=== PATIENT | female | born 1980 | race Caucasian/White ===

== ENCOUNTER 2021-05-24 13:41 | Emergency (ER) | payer MEDICAID ==
[~2021-05-24] VITALS: Ht 162 cm; Wt 125.0 kg
[2021-05-24] MEDS ORDERED: NS IV 1000 ML 1,000 ML IV SCH (14:15)
[2021-05-24] MEDS ORDERED: KETOROLAC 30 MG/ML VIAL IVP ONE (14:15)
[2021-05-24 14:26] LABS: HEMATOCRIT 40 % (35-52); HEMOGLOBIN 13.2 g/dL (11.5-16.0); LYMPHOCYTES % (AUTO) 26 % (12-44); MEAN CORPUSCULAR HEMOGLOBIN 31 pg (25-34); MEAN CORPUSCULAR HGB CONC 33 g/dL (32-36); MEAN CORPUSCULAR VOLUME 95 fL (80-99); MEAN PLATELET VOLUME 11.3 fL (9.0-12.2); NEUTROPHILS % (AUTO) 65 % (42-75); PLATELET COUNT 311 10^3/uL (130-400); WHITE BLOOD COUNT 11.1 10^3/uL (4.3-11.0)
[2021-05-24 14:27] LABS: BASOPHILS % (AUTO) 0 % (0-10); EOSINOPHILS # (AUTO) 0.4 10^3/uL (0.0-0.3); EOSINOPHILS % (AUTO) 3 % (0-10); LYMPHOCYTES # (AUTO) 2.9 X 10^3 (1.0-4.0); MONOCYTES # (AUTO) 0.6 X 10^3 (0.0-1.0); MONOCYTES % (AUTO) 5 % (0-12); NEUTROPHILS # (AUTO) 7.2 X 10^3 (1.8-7.8)
[2021-05-24] MEDS ORDERED: HOLD METFORMIN - RECEIVED CONTRAST 20 ML VIAL IV SCH (14:30)
[2021-05-24] MEDS ORDERED: NS 100 ML (IVPB) BAG IV ONE (14:30)
[2021-05-24] MEDS ORDERED: IOHEXOL 350 MG/ML 150 ML (OMNIPAQUE 350) VIAL IV ONE (14:30)
[2021-05-24] MEDS ORDERED: CATHETER FLUSH 10 ML SYR IV PRN (14:30)
[2021-05-24 14:36] LABS: CLARITY,URINE CLOUDY; COLOR,URINE YELLOW; GLUCOSE, URINE (UA) NEGATIVE (NEGATIVE); KETONES,URINE NEGATIVE (NEGATIVE); NITRITE,URINE NEGATIVE (NEGATIVE); PROTEIN,URINE TRACE (NEGATIVE)
[2021-05-24 14:37] LABS: BACTERIA,URINE MODERATE /HPF; BILIRUBIN,URINE 1+ (NEGATIVE); LEUKOCYTE ESTERASE ,URINE NEGATIVE (NEGATIVE)
[2021-05-24 14:45] LABS: ALANINE AMINOTRANSFERASE 7 U/L (0-55); ALKALINE PHOSPHATASE 68 U/L (40-136); BILIRUBIN,TOTAL 0.2 MG/DL (0.1-1.0); BUN/CREATININE RATIO 9; CALCIUM 8.3 MG/DL (8.5-10.1); CARBON DIOXIDE 22 MMOL/L (21-32); CHLORIDE 105 MMOL/L (98-107); CREATININE SERUM 0.74 MG/DL (0.60-1.30); GFR ESTIMATED 104; GLUCOSE 132 MG/DL (70-105); POTASSIUM 3.1 MMOL/L (3.6-5.0); SODIUM 140 MMOL/L (135-145); TOTAL PROTEIN 6.4 GM/DL (6.4-8.2)
[2021-05-24 14:46] LABS: ALBUMIN 3.5 GM/DL (3.2-4.5)
--- NOTE | 2021-05-24 15:03 | Diagnostic Imaging Report ---
PROCEDURE: CT abdomen and pelvis with and without contrast. TECHNIQUE: Precontrast acquisitions were acquired through the abdomen and pelvis. Multiple contiguous axial images were obtained through the abdomen and pelvis after the administration of intravenous contrast. Auto Exposure Controls were utilized during the CT exam to meet ALARA standards for radiation dose reduction. INDICATION: Left-sided pain of one week's duration. COMPARISON: I have no previous. FINDINGS: There are no opaque urinary tract calculi. There is no hydroureteronephrosis. Gallbladder is surgically absent. The liver is nonacute. No biliary dilatation. Spleen, adrenals, and pancreas appeared normal. The aortoiliac vessels are patent and nonaneurysmal. The uterus and urinary bladder are unremarkable. There is a left ovarian cyst compatible with dominant physiologic follicle, 2.9 cm. No acute or suspicious adnexal lesion. There were no findings of appendicitis or diverticulitis. No abnormal fecal loading. No bowel obstruction. No perienteric or pericolonic edema. No pneumatosis. No free gas. There is no ascites, abscess, hematoma, or other acute fluid collection. No inflammatory process. IMPRESSION: Likely physiologic left ovarian cyst. No bowel, biliary, or urinary tract obstruction; inflammatory process; or acute appearing abnormalities. Dictated by: Dictated on workstation # [id number]
--- NOTE | 2021-05-24 15:34 | ED Back Pain ---
General Chief Complaint: Back Problems Stated Complaint: LT SIDE ABD PAIN,FACIAL SWELLING Nursing Triage Note: PT REPORTS LEFT LOWER BACK PAIN FOR ABOUT A WEEK NOW. History of Present Illness Date Seen by Provider: May 24, 2021 Time Seen by Provider: 13:56 Initial Comments 41 yr F with PMH of [place] 4 years ago, cholecystectomy, HTN, Carpal Tunnel Syndrome, is here with c/o left sided flank/ back pain which began a few days ago after lifting heavy crates/boxes. Pt's pain is 5/10 and is aching in nature. Denies chest pain, abdominal pain, fever, SOB, diarrhea, nausea, vomiting, dysuria, falls, or injury. Allergies and Home Medications Allergies Coded Allergies: No Known Drug Allergies (Unverified , 05/24/21) Patient Home Medication List Home Medication List Reviewed: Yes Review of Systems Constitutional: no symptoms reported EENTM: no symptoms reported Respiratory: no symptoms reported Cardiovascular: no symptoms reported Gastrointestinal: no symptoms reported Genitourinary: no symptoms reported Musculoskeletal: back pain Skin: no symptoms reported Psychiatric/Neurological: No Symptoms Reported Past Ouxzgaa-Wxzifx-Fxuaxz Hx Patient Social History Tobacco Use?: Yes Tobacco type used: Cigarettes Smoking Status: Current Everyday Smoker Use of E-Cig and/or Vaping dev: No Substance use?: Yes Substance type: Marijuana Substance frequency: Couple times a week Alcohol Use?: No Pt feels they are or have been: No Physical Exam Vital Signs Vital Signs - First Documented 05/24/21 13:45 Temp 35.8 Pulse 125 Resp 20 B/P (MAP) 204/107 (139) Pulse Ox 100 O2 Delivery Room Air Capillary Refill : Less Than 3 Seconds Height, Weight, BMI Height: '" Weight: lbs. oz. kg; 47.00 BMI Method: General Appearance: No Apparent Distress HEENT: PERRL/EOMI Neck: Full Range of Motion, Normal Inspection, Non Tender, Supple Cardiovascular: Regular Rate, Rhythm Respiratory: Lungs Clear, Normal Breath Sounds, No Accessory Muscle Use Gastrointestinal: Non Tender, Soft Back: No Vertebral Tenderness, CVA Tenderness (L) (Present on left near the 12th rib area, anterior and posterior), Muscle Spasm Extremity: Normal Range of Motion Neurologic/Psychiatric: Alert, Oriented x3, No Motor/Sensory Deficits Skin: Normal Color Lymphatic: No Adenopathy Progress/Results/Core Measures Results/Orders Lab Results Laboratory Tests Test 05/24/21 13:45 05/24/21 14:10 Range/Units Urine Color YELLOW Urine Clarity CLOUDY Urine pH 6.0 5-9 Urine Specific [place] >=1.030 1.016-1.022 Urine Protein TRACE H NEGATIVE Urine Glucose (UA) NEGATIVE NEGATIVE Urine Ketones NEGATIVE NEGATIVE Urine Nitrite NEGATIVE NEGATIVE Urine Bilirubin 1+ H NEGATIVE Urine Urobilinogen 0.2 < = 1.0 MG/DL Urine Leukocyte Esterase NEGATIVE NEGATIVE Urine RBC (Auto) 3+ H NEGATIVE Urine RBC 2-5 H /HPF Urine WBC 2-5 /HPF Urine Squamous Epithelial Cells 10-25 H /HPF Urine Crystals NONE /LPF Urine Bacteria MODERATE H /HPF Urine Casts NONE /LPF Urine Mucus MODERATE H /LPF Urine Culture Indicated NO White Blood Count 11.1 H 4.3-11.0 10^3/uL Red Blood Count 4.24 3.80-5.11 10^6/uL Hemoglobin 13.2 11.5-16.0 g/dL Hematocrit 40 35-52 % Mean Corpuscular Volume 95 80-99 fL Mean Corpuscular Hemoglobin 31 25-34 pg Mean Corpuscular Hemoglobin Concent 33 32-36 g/dL Red Cell Distribution Width 13.1 10.0-14.5 % Platelet Count 311 130-400 10^3/uL Mean Platelet Volume 11.3 9.0-12.2 fL Neutrophils (%) (Auto) 65 42-75 % Lymphocytes (%) (Auto) 26 12-44 % Monocytes (%) (Auto) 5 0-12 % Eosinophils (%) (Auto) 3 0-10 % Basophils (%) (Auto) 0 0-10 % Neutrophils # (Auto) 7.2 1.8-7.8 X 10^3 Lymphocytes # (Auto) 2.9 1.0-4.0 X 10^3 Monocytes # (Auto) 0.6 0.0-1.0 X 10^3 Eosinophils # (Auto) 0.4 H 0.0-0.3 10^3/uL Basophils # (Auto) 0.0 0.0-0.1 10^3/uL Sodium Level 140 135-145 MMOL/L Potassium Level 3.1 L 3.6-5.0 MMOL/L Chloride Level 105 98-107 MMOL/L Carbon Dioxide Level 22 21-32 MMOL/L Anion Gap 13 5-14 MMOL/L Blood Urea Nitrogen 7 7-18 MG/DL Creatinine 0.74 0.60-1.30 MG/DL Estimat Glomerular Filtration Rate 104 BUN/Creatinine Ratio 9 Glucose Level 132 H 70-105 MG/DL Calcium Level 8.3 L 8.5-10.1 MG/DL Corrected Calcium 8.7 8.5-10.1 MG/DL Magnesium Level 2.0 1.6-2.4 MG/DL Total Bilirubin 0.2 0.1-1.0 MG/DL Aspartate Amino Transf (AST/SGOT) 11 5-34 U/L Alanine Aminotransferase (ALT/SGPT) 7 0-55 U/L Alkaline Phosphatase 68 40-136 U/L Troponin I < 0.30 <0.30 NG/ML Total Protein 6.4 6.4-8.2 GM/DL Albumin 3.5 3.2-4.5 GM/DL My Orders Orders - ELLIS SALVADOR MD Ua Culture If Indicated (05/24/21 14:04) Blood Culture (05/24/21 14:04) Ed Iv/Invasive Line Start (05/24/21 14:04) Cbc With Automated Diff (05/24/21 14:04) Comprehensive Metabolic Panel (05/24/21 14:04) Magnesium (05/24/21 14:04) Ns Iv 1000 Ml (Sodium Chloride 0.9%) (05/24/21 14:15) Ketorolac Injection (Toradol Injection) (05/24/21 14:15) Ct Abdomen/Pelvis W Wo (05/24/21 14:08) Troponin I Fs (05/24/21 14:09) Blood Culture (05/24/21 14:10) Iohexol Injection (Omnipaque 350 Mg/Ml 1 (05/24/21 14:30) Received Contrast (Hold Metformin- Contr (05/24/21 14:30) Sodium Chloride Flush (Catheter Flush Sy (05/24/21 14:30) Ns (Ivpb) (Sodium Chloride 0.9% Ivpb Bag (05/24/21 14:30) Lidocaine 4% Cream (Lmx 4 Cream) (05/24/21 15:45) Medications Given in ED Current Medications Medications Dose Ordered Sig/Alcides Route Start Time Stop Time Status Last Admin Dose Admin Iohexol 100 ml ONCE ONCE IV 05/24/21 14:30 05/24/21 14:31 DC 05/24/21 14:33 100 ML Ketorolac Tromethamine 15 mg ONCE ONCE IVP 05/24/21 14:15 05/24/21 14:16 DC 05/24/21 14:14 15 MG Lidocaine 5 gm ONCE ONCE TOP 05/24/21 15:45 05/24/21 15:46 DC 05/24/21 15:45 5 GM Sodium Chloride 10 ml NEEDED PRN IV 05/24/21 14:30 05/24/21 14:33 10 ML Sodium Chloride 100 ml ONCE ONCE IV 05/24/21 14:30 05/24/21 14:31 DC 05/24/21 14:33 100 ML Vital Signs/I&O 05/24/21 05/24/21 13:45 15:35 Temp 35.8 35.8 Pulse 125 95 Resp 20 20 B/P (MAP) 204/107 (139) 145/86 Pulse Ox 100 100 O2 Delivery Room Air Room Air Blood Pressure Mean: 139 Progress Progress Note : Progress Note 1. LEFT SIDED MUSCLE STRAIN: -CT scan of the abdomen with contrast is unremarkable, and only shows a physiologic left ovarian cyst without any complications. CT was done to rule out pyelonephritis. -Labs and UA are normal. -Toradol injection 15 mg given for pain, Lidocaine cream in ER -Advised OTC Aleeve 440mg BID, Tylenol Q4H, and Lidoderm patches, gentle stretching, and heat application. F/u with PCP -The patient was seen in the ED, and treated appropriately to presentation at a specific point in time. Patient is informed that there is a possibility that disease and illness can evolve and change in acuity rapidly or slowly after giancarlo ent is discharged from the ER. Precautionary advice given to the patient for immediate return to ER if symptoms worsen or do not resolve, and to seek emergency care sooner rather than later. Pt also advised on the importance of PCP follow up and compliance with management and follow up plan. Pt verbally expressed understanding. Diagnostic Imaging Diagonstic Imaging: CT Plain Films/CT/US/NM/MRI: abdomen Comments [facility], [place] NAME: DEANGELO ALANIS [facility] REC#: [id number] PT STATUS: REG ER : 1980 PHYSICIAN: ELLIS SALVADOR MD ADMIT DATE: 05/24/21/ER FS Draft Date of Exam:05/24/21 CT ABDOMEN/PELVIS W WO PROCEDURE: CT abdomen and pelvis with and without contrast. TECHNIQUE: Precontrast acquisitions were acquired through the abdomen and pelvis. Multiple contiguous axial images were obtained through the abdomen and pelvis after the administration of intravenous contrast. Auto Exposure Controls were utilized during the CT exam to meet ALARA standards for radiation dose reduction. INDICATION: Left-sided pain of one week's duration. COMPARISON: I have no previous. FINDINGS: There are no opaque urinary tract calculi. There is no hydroureteronephrosis. Gallbladder is surgically absent. The liver is nonacute. No biliary dilatation. Spleen, adrenals, and pancreas appeared normal. The aortoiliac vessels are patent and nonaneurysmal. The uterus and urinary bladder are unremarkable. There is a left ovarian cyst compatible with dominant physiologic follicle, 2.9 cm. No acute or suspicious adnexal lesion. There were no findings of appendicitis or diverticulitis. No abnormal fecal loading. No bowel obstruction. No perienteric or pericolonic edema. No pneumatosis. No free gas. There is no ascites, abscess, hematoma, or other acute fluid collection. No inflammatory process. IMPRESSION: Likely physiologic left ovarian cyst. No bowel, biliary, or urinary tract obstruction; inflammatory process; or acute appearing abnormalities. Dictated on workstation # [id number] Dict: 05/24/21 1455 Trans: 05/24/21 1503 [id number] Interpreted by: ANISH ESCUDERO Electronically signed by: Departure Impression Primary Impression: Muscle strain of chest wall Qualified Codes: S29.011A - Strain of muscle and tendon of front wall of thorax, initial encounter Disposition: HOME, SELF-CARE Condition: Improved Departure-Patient Inst. Referrals: NEVIN GARRIDO MD (PCP/Family) Primary Care Physician Patient Instructions: Back Muscle Strain (DC) Add. Discharge Instructions: Advised OTC Aleeve 440mg BID, Tylenol Q4H, and Lidoderm patches, gentle stretching, and heat application. F/u with PCP All discharge instructions reviewed with patient and/or family. Voiced unders tanding. Work/School Note: Work Release Form Date Seen in the Emergency Department: May 24, 2021 Return to Work: May 26, 2021 Restrictions: No heavy lifting until cleared by PCP ELLIS SALVADOR MD May 24, 2021 15:34
[2021-05-24 15:35] VITALS: BP 145/86
[2021-05-24] MEDS ORDERED: LIDOCAINE 4% CREAM 5 GM (LMX) TOP ONE (15:45)
== END 2021-05-24 15:45 | disposition home or self-care (01) ==
LOC: ER FS 13:43
DX: S29.011A Strain of muscle and tendon of front wall of thorax, initial encounter (principal); I10 Essential (primary) hypertension; F17.210 Nicotine dependence, cigarettes, uncomplicated; X50.0XXA Overexertion from strenuous movement or load, initial encounter
CPT/HCPCS: 36415; 74178; 80053; 81000; 83735; 84484; 85025; 87040; Q9967